=== PATIENT | male | born 1950 | race Caucasian/White ===

== ENCOUNTER 2019-02-26 17:11 | Inpatient (IN) | payer MEDICARE ==
[~2019-02-26] VITALS: Ht 167.6 cm; Wt 74.8 kg
[2019-02-26] MEDS ORDERED: MELO-107 PO (17:22)
[2019-02-26] MEDS ORDERED: BACL10TA PO (17:22)
[2019-02-26] MEDS ORDERED: TAMS-3 PO (17:22)
[2019-02-26] MEDS ORDERED: LORA1TAB PO (17:22)
[2019-02-26] MEDS ORDERED: ATEN50TA PO (17:22)
[2019-02-26] MEDS ORDERED: ZOLP10TA2 PO (17:22)
[2019-02-26] MEDS ORDERED: THIA100T74 PO (17:22)
[2019-02-26] MEDS ORDERED: METF-440 PO (17:22)
[2019-02-26 18:15] LABS: BASOPHILS # (AUTO) 0.1 K/uL (0.0-8.0); BASOPHILS % (AUTO) 0.9 % (0.0-2.0); EOSINOPHILS # (AUTO) 0.1 K/uL (0.0-0.7); EOSINOPHILS % (AUTO) 0.5 % (0.0-7.0); HEMATOCRIT 41.3 % (36.7-47.1); HEMOGLOBIN 14.1 g/dL (12.5-16.3); LYMPHOCYTES # (AUTO) 1.5 K/uL (20.0-40.0); LYMPHOCYTES % (AUTO) 12.5 % (20.5-51.5); MEAN CORPUSCULAR HEMOGLOBIN 32.1 uug (23.8-33.4); MEAN CORPUSCULAR HGB CONC 34 g/dL (32.5-36.3); MEAN CORPUSCULAR VOLUME 94.1 fL (73.0-96.2); MONOCYTES % (AUTO) 7.9 % (0.0-11.0); NEUTROPHILS # (AUTO) 9.5 K/uL (1.8-8.9); NEUTROPHILS % (AUTO) 78.2 % (38.5-71.5); PLATELET COUNT (AUTO) 247 K/uL (152-348); RED BLOOD CELL COUNT(AUTO) 4.39 MIL/uL (4.06-5.63); WHITE BLOOD COUNT (AUTO) 12.1 K/uL (3.6-10.2)
[2019-02-26 18:24] LABS: CARBON DIOXIDE 21 mmol/L (21-32); CHLORIDE 106 mmol/L (98-107); CREATININE 1.2 mg/dL (0.6-1.3); GLUCOSE 127 mg/dL (74-106); POTASSIUM 4.5 mmol/L (3.5-5.1); UREA NITROGEN, BLOOD 20 mg/dL (7-18)
[2019-02-26 18:30] LABS: ACETAMINOPHEN < 2.0 ug/mL (10-30); ALANINE AMINOTRANSFERASE 26 U/L (16-63); ALKALINE PHOSPHATASE 41 U/L (50-136); ASPARTATE AMINOTRANSFERASE 30 U/L (15-37); BILIRUBIN,DIRECT 0.2 mg/dL (0.0-0.2); BILIRUBIN,TOTAL 0.7 mg/dL (0.2-1.0); ETHANOL 90 MG/DL (0-0); TOTAL PROTEIN, SERUM 7.9 g/dL (6.4-8.2)
--- NOTE | 2019-02-26 20:34 | NUR ---
Pt out of ER for CT.
--- NOTE | 2019-02-26 20:54 | NUR ---
Pt back to ER from CT.
--- NOTE | 2019-02-26 21:51 | NUR ---
Xray at bedside.
--- NOTE | 2019-02-26 22:08 | NUR ---
Called [facility] to page Dr. Jeff Trejo.
--- NOTE | 2019-02-26 22:17 | NUR ---
Dr. Martinez on panel call with Dr. Jeff Trejo. Pt accepted for admission to tele: diagnosis altered mental status.
--- NOTE | 2019-02-26 22:45 | NUR ---
Report given to [facility] Tele.
--- NOTE | 2019-02-26 22:50 | NUR ---
Pt provided urine sample, sent to lab.
[2019-02-26] MEDS ORDERED: LORAZEPAM 1 MG TABLET PO STA (22:54)
[2019-02-26] MEDS ORDERED: LORAZEPAM 1 MG TABLET ONE (23:00)
--- NOTE | 2019-02-26 23:30 | NUR ---
Received patient from ER. Dx: Altered Mental Status. Patient is A/Ox3. No signs of acute distress noted. No complaints of pain or SOB. Heplock on the right FA is intact and patent. All belongings were brought with patient. Safety measures given. Bed is low and locked, call light is within reach. Will continue with the admission process.
[2019-02-26 23:53] LABS: *BILIRUBIN,URIN NEGATIVE (NEGATIVE); *BLOOD, URINE 1+ (NEGATIVE); *CLARITY,URINE CLEAR (CLEAR); *COLOR,URINE YELLOW (YELLOW); *KETONES,URINE NEGATIVE (NEGATIVE); *UROBILINOGEN,URINE 0.2 E.U./dl (NORMAL); LEUKOCYTE ESTERASE ,URINE TRACE (NEGATIVE); NITRITE, URINE NEGATIVE (NEGATIVE); PH,URINE 5.5 (5.0-8.0); UGLUCOSE NEGATIVE (NEGATIVE)
[2019-02-27] MEDS ORDERED: ACETAMINOPHEN 325 MG TABLET PO PRN
[2019-02-27] MEDS ORDERED: ONDANSETRON 4 MG/2 ML VIAL IV PRN
[2019-02-27 00:06] LABS: BACTERIA,URINE NONE SEEN /HPF (NONE SEEN); RBC,URINE 0-3 /HPF (0-3); SQUAMOUS EPITHELIAL CELL,UR FEW /HPF (NONE SEEN)
[2019-02-27 00:08] LABS: *AMPHETAMINE, URINE NEGATIVE (NEGATIVE); *BARBITURATE, URINE NEGATIVE (NEGATIVE); *CANNABINOID, URINE NEGATIVE (NEGATIVE); *COCCAINE, URINE NEGATIVE (NEGATIVE); *OPIATE, URINE NEGATIVE (NEGATIVE); *PHENCYCLIDINE SCREEN,URINE NEGATIVE (NEGATIVE)
[2019-02-27 00:13] VITALS: BP 152/80
[2019-02-27] MEDS: IV 1/2NS 1000 ML 1,000 ML IV PRN ×2 (00:33→17:29)
[2019-02-27 04:00] VITALS: BP 160/64
[2019-02-27] MEDS: LORAZEPAM 2 MG/1 ML VIAL IV PRN ×4 (04:51→20:57)
[2019-02-27 06:43] LABS: BASOPHILS # (AUTO) 0.1 K/uL (0.0-8.0); EOSINOPHILS # (AUTO) 0.3 K/uL (0.0-0.7); HEMOGLOBIN 14.4 g/dL (12.5-16.3); LYMPHOCYTES # (AUTO) 1.7 K/uL (20.0-40.0); MEAN CORPUSCULAR HGB CONC 34 g/dL (32.5-36.3); MONOCYTES # (AUTO) 0.6 K/uL (2.0-10.0)
--- NOTE | 2019-02-27 06:48 | NUR ---
Patient slept well throughout the night. Woke up and was feeling anxious. Ativan given and was effective. Safety measures given.
[2019-02-27 06:52] LABS: EOSINOPHILS % (AUTO) 4.3 % (0.0-7.0); HEMATOCRIT 42.1 % (36.7-47.1); LYMPHOCYTES % (AUTO) 22.3 % (20.5-51.5); MEAN CORPUSCULAR HEMOGLOBIN 32.3 uug (23.8-33.4); MEAN CORPUSCULAR VOLUME 94.6 fL (73.0-96.2); MONOCYTES % (AUTO) 7.7 % (0.0-11.0); NEUTROPHILS % (AUTO) 64.7 % (38.5-71.5); PLATELET COUNT (AUTO) 221 K/uL (152-348); RED BLOOD CELL COUNT(AUTO) 4.45 MIL/uL (4.06-5.63); WHITE BLOOD COUNT (AUTO) 7.6 K/uL (3.6-10.2)
[2019-02-27 07:03] LABS: THYROID STIMULATING HORMONE 1.339 mIU/mL (0.358-3.740)
[2019-02-27 07:13] LABS: BILIRUBIN,TOTAL 1.1 mg/dL (0.2-1.0); CREATININE 1.2 mg/dL (0.6-1.3); MAGNESIUM 1.5 mg/dL (1.8-2.4); PHOSPHOROUS 3.6 mg/dL (2.5-4.9); TOTAL PROTEIN, SERUM 7.5 g/dL (6.4-8.2)
[2019-02-27] MEDS ORDERED: MAGNESIUM SULFATE/D5W 100 ML IV SCH (07:30)
--- NOTE | 2019-02-27 07:45 | NUR ---
Sleeping, appears comfortable. IVF infusing. Bed alarm on
[2019-02-27] MEDS ORDERED: Medication Not On Formulary EA (Zolpidem Tartrate (Ambien) 10 MG) PO PRN (08:30)
[2019-02-27] MEDS: BLOOD SUGAR DIAGNOSTIC 1 EACH STRIP VI SCH ×4 (08:45→20:59)
[2019-02-27] MEDS ORDERED: DEXTROSE 50% 50 ML DISP.SYRIN IV PRN (08:45)
[2019-02-27] MEDS ORDERED: LORAZEPAM 1 MG TABLET PO PRN (08:45)
[2019-02-27] MEDS ORDERED: ZOLPIDEM 5 MG TABLET PO PRN (08:45)
[2019-02-27] MEDS ORDERED: PANTOPRAZOLE SODIUM 40 MG VIAL IV SCH (09:00)
[2019-02-27] MEDS ORDERED: Medication Not On Formulary EA (Meloxicam 15 MG) PO SCH (09:00)
[2019-02-27] MEDS: FOLIC ACID 1 MG TABLET PO SCH (09:18)
[2019-02-27] MEDS: PANTOPRAZOLE SODIUM 40 MG TABLET.DR PO SCH (09:18)
[2019-02-27] MEDS: CEphaleXIN 500 MG CAPSULE PO SCH ×2 (09:19→17:26)
[2019-02-27] MEDS: MELOXICAM 7.5 MG TABLET PO SCH (09:19)
[2019-02-27] MEDS: MULTIVITAMINS,THERAPEUTIC TABLET PO SCH (09:20)
[2019-02-27] MEDS: THIAMINE HCL 100 MG TABLET PO SCH (09:20)
[2019-02-27] MEDS: ATENOLOL 50 MG TABLET PO SCH (09:20)
--- NOTE | 2019-02-27 09:30 | NUR ---
Compliant with taking medications but anxious and restless. Ativan given
[2019-02-27 11:30] VITALS: BP 165/91
[2019-02-27] MEDS: INSULIN REGULAR, HUMAN 300 UNIT/3 ML VIAL SQ PRN ×3 (12:23→21:03)
[2019-02-27] MEDS: BACLOFEN 10 MG TABLET PO SCH ×2 (13:20→21:00)
[2019-02-27] MEDS: MORPHINE SULFATE 2 MG/1 ML DISP.SYRIN IV PRN (13:21)
--- NOTE | 2019-02-27 14:25 | NUR ---
Patient anxious and restless with repeated calls about chest being hallow, not relieved with Morphine. Ativan given with relief and resting after
[2019-02-27 15:37] VITALS: BP 163/82
--- NOTE | 2019-02-27 18:36 | NUR ---
Tele discontinued. Resting comfortably
[2019-02-27 19:12] VITALS: BP 142/80
--- NOTE | 2019-02-27 19:25 | NUR ---
Received patient from day shift nurse. IV infusing in right forearm. Patient calm, and requesting diaper change. Will continue to monitor.
[2019-02-27] MEDS ORDERED: TAMSULOSIN HCL 0.4 MG CAP.SR.24H PO SCH (21:00)
[2019-02-28 03:21] VITALS: BP 141/86
[2019-02-28 05:37] LABS: BASOPHILS # (AUTO) 0.1 K/uL (0.0-8.0); BASOPHILS % (AUTO) 1.1 % (0.0-2.0); EOSINOPHILS # (AUTO) 0.4 K/uL (0.0-0.7); EOSINOPHILS % (AUTO) 5.1 % (0.0-7.0); HEMATOCRIT 43.4 % (36.7-47.1); HEMOGLOBIN 14.8 g/dL (12.5-16.3); LYMPHOCYTES # (AUTO) 2.2 K/uL (20.0-40.0); LYMPHOCYTES % (AUTO) 25.4 % (20.5-51.5); MEAN CORPUSCULAR HEMOGLOBIN 32.3 uug (23.8-33.4); MEAN CORPUSCULAR HGB CONC 34 g/dL (32.5-36.3); MEAN CORPUSCULAR VOLUME 94.6 fL (73.0-96.2); MONOCYTES # (AUTO) 0.6 K/uL (2.0-10.0); MONOCYTES % (AUTO) 7.1 % (0.0-11.0); NEUTROPHILS # (AUTO) 5.3 K/uL (1.8-8.9); NEUTROPHILS % (AUTO) 61.3 % (38.5-71.5); PLATELET COUNT (AUTO) 218 K/uL (152-348); RED BLOOD CELL COUNT(AUTO) 4.59 MIL/uL (4.06-5.63); WHITE BLOOD COUNT (AUTO) 8.7 K/uL (3.6-10.2)
[2019-02-28 05:49] LABS: CREATININE 1.3 mg/dL (0.6-1.3); MAGNESIUM 1.8 mg/dL (1.8-2.4); POTASSIUM 4.8 mmol/L (3.5-5.1)
[2019-02-28] MEDS: PANTOPRAZOLE SODIUM 40 MG TABLET.DR PO SCH (06:01)
[2019-02-28] MEDS: BACLOFEN 10 MG TABLET PO SCH ×2 (06:01→13:32)
[2019-02-28] MEDS: LORAZEPAM 2 MG/1 ML VIAL IV PRN ×2 (06:06→10:30)
[2019-02-28] MEDS: IV 1/2NS 1000 ML 1,000 ML IV PRN (06:06)
[2019-02-28] MEDS: BLOOD SUGAR DIAGNOSTIC 1 EACH STRIP VI SCH ×2 (06:30→12:08)
--- NOTE | 2019-02-28 06:42 | NUR ---
Patient slept well throughout the night. During morning medication administration, patient stated he was anxious. Ativan given and was effective. Safety measures in place. will endorse to oncoming shift accordingly.
[2019-02-28] MEDS: INSULIN REGULAR, HUMAN 300 UNIT/3 ML VIAL SQ PRN (08:21)
[2019-02-28] MEDS: CEphaleXIN 500 MG CAPSULE PO SCH (08:55)
[2019-02-28] MEDS: FOLIC ACID 1 MG TABLET PO SCH (08:55)
[2019-02-28] MEDS: MULTIVITAMINS,THERAPEUTIC TABLET PO SCH (08:55)
[2019-02-28] MEDS: MELOXICAM 7.5 MG TABLET PO SCH (08:55)
[2019-02-28] MEDS: THIAMINE HCL 100 MG TABLET PO SCH (08:56)
[2019-02-28] MEDS: ATENOLOL 50 MG TABLET PO SCH (09:04)
[2019-02-28] MEDS ORDERED: CEPH500C2 PO (10:57)
[2019-02-28] MEDS ORDERED: MULT-24 PO (10:57)
[2019-02-28] MEDS ORDERED: LORA0.5T PO (10:57)
[2019-02-28] MEDS ORDERED: FOLI1TAB16 PO (10:57)
[2019-02-28] MEDS ORDERED: LORA1TAB PO (10:58)
[2019-02-28 11:17] VITALS: BP 159/83
[2019-02-28] MEDS: MORPHINE SULFATE 2 MG/1 ML DISP.SYRIN IV PRN (13:23)
--- NOTE | 2019-02-28 14:20 | NUR ---
patient is in stable condition with VS within normal limits. patient denies any pain/discomfort at this time. patient is alert and oriented x3. patient friend, David Jarvis has arranged transforation for patient to be picked up at the hospital and to go to family home in [place] where he will meet him. patient was discharged with exit care package along with valuables and belongings. Patient IV and ID have been removed. Patient escorted to the lobby via wheel chair, picked up by private car arranged by friend, David Jarvis.
--- NOTE | 2019-03-02 05:23 | NUR ---
INFORMATION SENT: FACESHEET,DISCHARGE SUMMARY INSURANCE NAME: [facility] FAX NUMBER: [phone] FAX SENT
== END 2019-02-28 14:37 | disposition home or self-care (01) | DRG 640 ==
LOC: ER 17:11 → EDBD 17:11 → TELE3 22:18 → MEDSURG3 02-27 15:44
PROVIDERS: ADMIT Nurse Practitioner Acute Care; ATTEND Nurse Practitioner Acute Care
DX: E86.0 Dehydration (principal); G93.41 Metabolic encephalopathy; N39.0 Urinary tract infection, site not specified; K21.9 Gastro-esophageal reflux disease without esophagitis; F10.229 Alcohol dependence with intoxication, unspecified; Y90.0 Blood alcohol level of less than 20 mg/100 ml; M19.90 Unspecified osteoarthritis, unspecified site; F41.9 Anxiety disorder, unspecified; E83.42 Hypomagnesemia; E78.5 Hyperlipidemia, unspecified; E11.65 Type 2 diabetes mellitus with hyperglycemia; Z79.84 Long term (current) use of oral hypoglycemic drugs; N40.0 Benign prostatic hyperplasia without lower urinary tract symptoms; I10 Essential (primary) hypertension; G47.00 Insomnia, unspecified; M48.02 Spinal stenosis, cervical region
CPT/HCPCS: 36415; 70030-TC; 70450; 71045; 72125; 80307; 83735; 84100; 84443; 85025; 93005; A4663; G0378; G0480; G0480-TC; J1815; J2060; J2270; J3475; J3490